=== PATIENT | male | born 1955 | race American Indian/Alaskan Native ===

== ENCOUNTER 2020-06-24 08:33 | Day surgery (SDC) | payer MEDICARE ==
[2020-06-24] MEDS ORDERED: HYDROmorphone 1 MG/1 ML INJ IV PRN ×2 (09:25)
[2020-06-24] MEDS ORDERED: ONDANSETRON 4 MG/2 ML INJ IV PRN (09:25)
[2020-06-24] MEDS ORDERED: LACTATED RINGERS 1,000 ML IV SCH (09:30)
--- NOTE | 2020-06-24 09:31 | Anesthesia Day of Surgery ---
Anesthesia Day of Surgery - Day of Surgery Patient Examined: Yes Patient H&P Reviewed: Yes Patient is NPO: Yes
--- NOTE | 2020-06-24 09:32 | Anesthesia Consultation ---
Anesthesia Consult and Med Hx Date of service: 06/24/20 - Airway Anesthetic Teeth Evaluation: Partials ROM Head & Neck: Inadequate (S/P ACDF and has several cervical HNPs) Mental/Hyoid Distance: Adequate Mallampati Class: Class III Intubation Access Assessment: Probably Good - Pre-Operative Health Status ASA Pre-Surgery Classification: ASA3 Proposed Anesthetic Plan: General, MAC - Pulmonary Hx Smoking: No Hx Sleep Apnea: Yes (?) - Cardiovascular System Hx Hypertension: Yes - Gastrointestinal Hx Gastroesophageal Reflux Disease: No - Endocrine Hx Renal Disease: No Hx Liver Disease: No Hx Non-Insulin Dependent Diabetes: Yes - Other Systems Hx Obesity: Yes
[2020-06-24] MEDS ORDERED: BACITRACIN ZINC OINT 28.4 GM TP ONE (09:35)
[2020-06-24] MEDS ORDERED: ceFAZolin/STERILE WATER 2 GM/20 ML SYRINGE IV NR (10:00)
[2020-06-24] MEDS ORDERED: MIDAZOLAM 2 MG/2 ML INJ IV NR (10:00)
[2020-06-24] MEDS ORDERED: propofoL 200 MG/20 ML VIAL IV ONE ×2 (10:37→11:15)
[2020-06-24] MEDS ORDERED: HYDROmorphone 1 MG/1 ML INJ ONE (10:37)
[2020-06-24] MEDS ORDERED: LIDOCAINE MPF (2%) 20 MG/1 ML VIAL 5 ML ONE (10:37)
[2020-06-24] MEDS ORDERED: MIDAZOLAM 5 MG/5 ML INJ MDV IV ONE (10:38)
[2020-06-24] MEDS ORDERED: KETAMINE/STERILE WATER 50 MG/ML SYRINGE ONE (10:39)
[2020-06-24] MEDS ORDERED: MIDAZOLAM 2 MG/2 ML INJ ONE (10:39)
[2020-06-24] MEDS ORDERED: BUPIVACAINE/PF (0.25%) 2.5 MG/ML 10 ML VIAL INFILTRATI ONE ×2 (10:53→11:05)
[2020-06-24] MEDS ORDERED: SODIUM CHLORIDE 0.9% IRR 1,500 ML BOTTLE IR ONE (11:06)
--- NOTE | 2020-06-24 11:47 | Short Stay Summary ---
Short Stay Documentation Date of service: 06/24/20 - History H&P: obtained from office - Allergies and Medications Current Medications: Allergies No Known Allergies Allergy (Unverified 06/24/20 09:15) Home Medications Medication Instructions Recorded Confirmed Last Taken Type Coumadin 2 mg PO DAILY 06/24/20 06/24/20 06/17/20 09:00 History Inderal 120 mg PO DAILY 06/24/20 06/24/20 06/23/20 09:00 History Lisinopril 10 mg PO DAILY 06/24/20 06/24/20 06/23/20 09:00 History Simvastatin 40 mg PO HS 06/24/20 06/24/20 Unknown History metFORMIN 500 mg PO DAILY 06/24/20 06/24/20 06/23/20 09:00 History Active Medications Cefazolin Sodium (Cefazolin/Sterile Water 2 Gm/20 Ml Syringe) 2 gm IV PREOP NR Stop: 06/24/20 20:00 Hydromorphone HCl (Hydromorphone 1 Mg/1 Ml Inj) 0.25 mg IV Q10MIN PRN PRN Reason: Pain, Moderate (4-6) Stop: 06/24/20 23:00 Hydromorphone HCl (Hydromorphone 1 Mg/1 Ml Inj) 0.5 mg IV Q10MIN PRN PRN Reason: Pain , Severe (7-10) Stop: 06/24/20 23:00 Lactated Ringer's (Lactated Ringers) 1,000 mls @ 125 mls/hr IV DIRECT LUZ Last Admin: 06/24/20 09:55 Dose: 125 mls/hr Documented by: Midazolam HCl (Midazolam 2 Mg/2 Ml Inj) 2 mg IV PREOP NR Stop: 06/24/20 23:59 Last Admin: 06/24/20 10:05 Dose: 2 mg Documented by: Ondansetron HCl (Ondansetron 4 Mg/2 Ml Inj) 4 mg IV ONCE PRN PRN Reason: Nausea And Vomiting Stop: 06/24/20 16:00 - Brief post op/procedure progress note Date of procedure: 06/24/20 Pre-op diagnosis: voluntary sterilzation (hx of left testes surgery) Post-op diagnosis: same Procedure: bilat vasectomy Anesthesia: GETA Surgeon: DAVID QUINTANILLA Estimated blood loss: minimal Pathology: list (vas bilat) Specimen disposition: to lab Condition: stable - Hospital course Hospital course: bactrim & norco on chart - Disposition Condition at discharge: Stable Disposition: DC-01 TO HOME OR SELFCARE Short Stay Discharge Plan Follow up with: KHARI LAURA JR [Other] - 7 Days Forms: Outpatient Surgery DC Inst.
[2020-06-24 12:07] VITALS: BP 128/79
--- NOTE | 2020-06-24 12:10 | Operative Report ---
PREOPERATIVE DIAGNOSIS: Voluntary sterilization, history of left scrotal surgery. POSTOPERATIVE DIAGNOSIS: Voluntary sterilization, history of left scrotal surgery. PROCEDURE: Bilateral vasectomy. SURGEON: Pedro Pablo Otoole MD ANESTHESIA: General. ESTIMATED BLOOD LOSS: Minimal. FLUIDS: Crystalloid. COMPLICATIONS: No complications. INDICATIONS: This patient is a 65-year-old gentleman with history of adult kids, desires vasectomy. Risks, benefits, and complications were explained. The patient agreed to proceed with surgical intervention. Attempts at a vasectomy under local anesthetic were unsuccessful. I was unable to palpate the vas deferens due to a hyporeflexic left cremasteric muscle and a high-riding testicle due to previous surgery. DESCRIPTION OF PROCEDURE: The patient was taken to the operative suite, placed in a supine position. After adequate general anesthesia, he was prepped and draped in a sterile fashion. Right vas deferens could be identified without difficulty. Towel clip was placed. Small incision was made over the vas deferens, dissected out 1 cm segment was identified, clipped bilaterally and transected and sent for routine pathologic evaluation. A 2-0 Vicryl was used to suture ligature the cut ends. Skin was closed with 3-0 chromic in interrupted fashion. On the left side, testicle was atrophic and high riding, thick cord, attempts to identify the vas deferens to the skin was unsuccessful, made a 1 cm incision that had to be extended due unable to palpate the vas deferens, now it appears to be scar tissue in the area. After extending the incision, I was able to identify the vas deferens. A 1-inch segment was identified, doubly clamped, transected and sent for routine pathologic evaluation. A 2-0 Vicryl ligature was placed on the cut ends. Copious irrigation was performed. Adequate hemostasis was achieved. A 0.25% Marcaine was injected in each scrotal area at the level of the external ring. Subcutaneous tissue was closed using 2-0 Vicryl in a running fashion on the left. Skin was closed with 3-0 chromic in interrupted fashion. Skin glue was placed. The patient tolerated the procedure well. Fluffs, scrotal support. He was extubated and taken to recovery room. He will go home on Bactrim and Avilla. JOB# [id number] RELL/PARIS
--- NOTE | 2020-06-24 13:06 | Post Anesthesia Evaluation ---
- Post Anesthesia Evaluation Patient Participated: Yes Airway Patent: Yes Stable Respiratory Function: Yes Nausea/Vomiting: No Temp > 96.8F: Yes Pain Manageable: Yes Adequeate Hydration: Yes Anesthesia Complications: No Block Receding Appropriately: Not Applicable Patient on Ventilator: No
== END 2020-06-24 13:25 | disposition home or self-care (01) ==
LOC: OR 08:33
PROVIDERS: ATTEND Urology
DX: Z30.2 Encounter for sterilization (principal); I10 Essential (primary) hypertension; E11.9 Type 2 diabetes mellitus without complications; G47.30 Sleep apnea, unspecified; E66.9 Obesity, unspecified; Z79.899 Other long term (current) drug therapy; Z79.84 Long term (current) use of oral hypoglycemic drugs; Z68.32 Body mass index [BMI] 32.0-32.9, adult
CPT/HCPCS: 55250; 82962; 88302; J0690; J1170; J2250; J2704; J3490; J7120